=== PATIENT | female | born 1990 | race Caucasian/White ===

== ENCOUNTER 2021-07-28 07:58 | Observation (INO) | payer BC, SELFPAY ==
[2021-07-28 08:31] VITALS: BP 121/77; PULSE 98
[2021-07-28 08:48] VITALS: TEMP 36.4
[2021-07-28] MEDS: THIAMINE HCL INJ 100 MG, FOLIC ACID INJ 1 MG, MULTIVITAMINS-12 INJ VIAL 1 5 ML, MULTIVI... 500 MG IV CONT (08:52)
[2021-07-28] MEDS: ONDANSETRON INJ 4 MG/2 ML VIAL IV PUSH (08:56)
[2021-07-28] MEDS: FAMOTIDINE 20 MG/2 ML VIAL IV PUSH (08:57)
[2021-07-28 09:04] VITALS: BMI 36.3
--- NOTE | 2021-07-28 09:04 | OBADM ---
This patient, Ct Olvera, admitted to the OB room OB Post 116 for observation. Patient/family oriented to hospital policies and general routines including ID bracelet, bed and alarms, visiting hours, pain management, procedures, bathroom and other care routines, personal items, smoking policy, room service/diet, and visiting hours. Patient/Family are encouraged to report perceived risks to care and to ask questions if they do not understand what they are told or what they should do.
[2021-07-28 09:20] LABS: Add Urine Microscopic? YES; Appearance Urine Cloudy (Clear); Bacteria Urine 2+ /hpf; Bilirubin Urine Negative (Negative); Blood Urine Negative (Negative); Color Urine Amber (Yellow); Glucose Urine UA Negative (Negative); Ketones Urine Negative (Negative); Leukocyte Esterase Ur Trace LEU/UL (NEGATIVE); Mucus Urine Rare /lpf; Nitrate Urine Negative (Negative); Protein Urine 1+ mg/dL (Negative); Specific Grav Ur 1.016 (1.001-1.035); Squamous Epithelial Cell Urine Many /hpf (Few)
[2021-07-28] MEDS: DEXTROSE 5%/LACTATED RINGERS 1,000 ML 999 ML IV CONT (11:29)
--- NOTE | 2021-07-28 12:16 | PC.NURSE ---
Patient states that she is feeling better and ok to go home. Dr Clay notified that patient is feeling better. OK to dc home.
--- NOTE | 2021-07-31 13:33 | P.PNOB_ITS ---
OB - Triage/Final Diagnosis Visit Information Comments/Additional reasons for admission: I have assessed the risk for this patient, Ct Olvera, and determined that she would benefit from observation care. Evaluation Laboratory results: Laboratory Tests 07/28/21 08:35 Urine Color Taylor Urine Appearance Cloudy H Urine pH 6.0 Ur Specific [place] 1.016 Urine Protein 1+ H Urine Glucose (UA) Negative Urine Ketones Negative Ur Blood (Man) Negative Urine Nitrate Negative Urine Bilirubin Negative Urine Urobilinogen 2.0 H Ur Leukocyte Esterase Trace H Urine RBC 6-10 H Urine WBC 10-15 H Ur Squamous Epith Cells Many H Urine Bacteria 2+ H Urine Mucus Rare Final Diagnosis (1) Viral gastroenteritis: Code(s): A08.4 - Viral intestinal infection, unspecified Status: Acute
== END 2021-07-28 12:35 | disposition home or self-care (01) ==
PROVIDERS: Admitting Provider Obstetrics & Gynecology; PCP Internal Medicine; Visit Provider Obstetrics & Gynecology
DX: O98.513 Other viral diseases complicating pregnancy, third trimester (principal); A08.4 Viral intestinal infection, unspecified; Z3A.30 30 weeks gestation of pregnancy
CPT/HCPCS: 59025; 81001; 87086; 87088; 96365; 96366; 96375; G0378; G0379; J2405; J3411; J3475; J7121

== ENCOUNTER 2021-09-07 12:42 | Observation (INO) | payer BC, SELFPAY ==
[2021-09-07 14:26] VITALS: BMI 35.6
--- NOTE | 2021-09-07 14:26 | OBADM ---
This patient, Ct Olvera, admitted to the OB room Labor/Delivery/Recovery 104 for observation. Patient/family oriented to hospital policies and general routines including ID bracelet, bed and alarms, visiting hours, pain management, procedures, bathroom and other care routines, personal items, smoking policy, room service/diet, and visiting hours. Patient/Family are encouraged to report perceived risks to care and to ask questions if they do not understand what they are told or what they should do.
--- NOTE | 2021-09-11 13:35 | PM.OBTRLD ---
OB - Triage/Final Diagnosis Visit Information Comments/Additional reasons for admission: I have assessed the risk for this patient, Ct Olvera, and determined that she would benefit from observation care. Final Diagnosis (1) Cramping affecting , antepartum: Code(s): O26.899 - Other specified related conditions, unspecified trimester; R10.9 - Unspecified abdominal pain Status: Acute
== END 2021-09-07 14:25 | disposition home or self-care (01) ==
PROVIDERS: Admitting Provider Obstetrics & Gynecology; PCP Internal Medicine; Visit Provider Obstetrics & Gynecology
DX: O26.899 Other specified pregnancy related conditions, unspecified trimester (principal); R10.9 Unspecified abdominal pain; Z3A.00 Weeks of gestation of pregnancy not specified
CPT/HCPCS: G0378; G0379

== ENCOUNTER 2021-09-22 10:09 | Outpatient (RCR) | payer BC, SELFPAY ==
--- NOTE | ~2021-09-22 | US_ITS ---
EXAMINATION: US OB follow up w [facility] DATE: 09/22/2021 11:57 INDICATION: Bleeding during third trimester TECHNIQUE: Real-time pelvic ultrasound was performed. The interpreting radiologist was not present fo r the study. COMPARISON: None. FINDINGS: There is a single living fetus in vertex presentation. The placenta is anterior. heart rate is 132 beats per minute (bpm). The amniotic fluid index is normal (normal range: 7.3 cm to 23.4 cm). Biophysical profile performed by the technologist: breathing (30 sec sustained breathing in 30 minutes): 0 out of 2 movement (3 gross body movements in 30 minutes): 2 out of 2 tone (one episode of jhpsjub-xdbymkdku-zjywjma limb movement): 2 out of 2 Amniotic fluid pocket (2 cm): 2 out of 2 Total score: 6 out of 8 The following biometric data were obtained: Biparietal diameter (BPD): 9.5 cm; head circumference (HC): 34.3 cm; abdominal circumference (AC): 39 .5 cm; femur length (FL): 7.5 cm. These measurements are concordant. Estimated weight is 4413 g +/- 661 g, which correlates with the >97th percentile when 10/02/2021 is used as estimated date of delivery. As single measurements, these parameters are each equal to the following estimated gestational ages w ith ranges of +/- 2 standard deviations: BPD: 38 weeks 6 days +/- 3 weeks 1 days. HC: 39 weeks 4 days +/- 2 weeks 5 days. AC: OOR FL: 38 weeks 2 days +/- 3 weeks 1 days. estimated gestational age based solely on measurements from this exam is 38 weeks 6 days +/- 2 weeks 5 days. IMPRESSION: 1. Single living fetus in vertex presentation. 2. Biophysical profile 6 out of 8. No points for breathing. 3. Estimated weight is 4413 g +/- 661 g, which correlates with the >97th percentile when 022 is used as estimated date of delivery. Reviewed, dictated and finalized at location A. IMPRESSION: 1. Single living fetus in vertex presentation. 2. Biophysical profile 6 out of 8. No points for breathing. 3. Estimated weight is 4413 g +/- 661 g, which correlates with the >97th percentile when 10/02/2021 is used as estimated date of delivery.
[2021-09-22 12:25] VITALS: BP 129/82; PULSE 91
--- NOTE | 2021-09-23 07:42 | PM.IMHP ---
H&P: HPI History of Present Illness Date/Time: 09/23/21 07:42 Chief Complaint: vaginal bleeding Narrative: Ct is a 31yo @ 38.5 (MASTER 10/02/21) who presented to L&D w/ persistent vaginal bleeding for the last few days; but has increased to bright red bleeding. She reports good movement. No leakage of fluid. She is having regular contractions q3-5min; cervix 3/80/-3. She has been closely monitored for growth; baby has been >97% with the AC measuring larger (out of range yesterday). She has been counseled that the EFW is as high as >5000g which is an indication for primary and she agrees. Her has been complicated by: - COVID infection in - Obesity - Anxiety on zoloft - Anemia on iron - LGA fetus; EFW >97%ile Review of Systems Review of Systems: All systems reviewed & are unremarkable except as noted in HPI and below (HPI) [facility] Past Medical History Medical History (Updated 09/23/21 @ 07:51 by Autumn Clay MD) Anxiety Surgical History Surgical History (System 07/31/21 @ 10:44 by Pola Medellin) History of appendectomy (~01/2020) History of dilation and curettage (~07/2020) missed AB Family History Family History Father Hypertension Diabetes mellitus Hypercholesteremia Mother Hypertension Hypercholesteremia Ulcerative colitis Social History Social History (System 07/31/21 @ 10:44 by Pola Medellin) Substance use: never Spiritual care concerns: No Meds Home Medications and Allergies Home Medications Medication Instructions Recorded Confirmed Type sertraline 50 mg tablet (Zoloft) 50 mg PO DAILY 06/05/21 07/28/21 History vits 75-iron 28 mg-folic 1 pkg PO 07/28/21 History acid 800 mcg-omega3 440 mg oral pack Allergies Allergy/AdvReac Type Severity Reaction Status Date / Time Penicillins Allergy Intermediate Hives Verified 09/03/21 14:33 amoxicillin Allergy Unknown Rash Verified 09/03/21 14:33 Vital Signs Vital Signs - 24 hr 09/22/21 12:25 Pulse Rate 91 Blood Pressure [Right Arm] 129/82 Exam Const: General: cooperative, healthy appearing, comfortable and no acute distress Resp: Effort & Inspection: normal respiratory effort Cardio: Rate: regular rate GI: GI Palp: Yes Soft to palpation : Other: FHT's: 140's/ mod boubacar/ no accels/ occasional lates/variables w/ contractions - cat 2 TOCO: ctx's q5min Presentation: cephalic Cervix: 3/80/-3 Membranes: bulging bag, intact GBS negative Skin: General skin exam: normal color Neuro: General: patient oriented x3 Extrem: General: normal to inspection Psych: Appearance: grossly normal Affect: normal affect Attitude: cooperative Assessment and Plan Assessment and plan (1) Vaginal bleeding: Code(s): N93.9 - Abnormal uterine and vaginal bleeding, unspecified Status: Acute (2) Large for gestational age fetus: Status: Acute Plan - We have discussed in detail the US findings and concern for the abdomen being significantly larger than the head; and risk of shoulder dystocia. He also has an estimated weight of 4-5k (20% either way). She understands that ultrasounds are never 100% accurate. However, with the decelerations and vaginal bleeding; I am unsure if we would even be able to augment labor at this point - Risks and benefits of the have been discussed in detail - Ancef 2g pre-op
--- NOTE | 2021-09-23 07:55 | WPDHPUPDATE1 ---
History and Physical Update Update Date/Time: 09/23/21 07:55 History and Physical has been reviewed, including an updated exam of the patient. There are NO changes in the patient's condition. Risks, benefits, and alternatives have been discussed and questions answered. Patient agrees to proceed with procedure.
== END 2021-09-27 08:47 | disposition home or self-care (01) ==
LOC: ANHOBOP 10:09
PROVIDERS: PCP Internal Medicine; Visit Provider Obstetrics & Gynecology
DX: O99.891 Other specified diseases and conditions complicating pregnancy (principal); N93.9 Abnormal uterine and vaginal bleeding, unspecified; Z3A.38 38 weeks gestation of pregnancy
CPT/HCPCS: 59025; 76816; 76819

== ENCOUNTER 2021-09-23 07:00 | Inpatient (IN) | payer BC, SELFPAY ==
[2021-09-23] VITALS (67 sets, daily range): BP systolic 97–132; BP diastolic 51–93; PULSE 61–101; RESP 12–22; TEMP 36.2–36.5; O2SAT 97–100; BMI 35.6
--- OUTSIDE RECORDS SUMMARY | 2021-09-23 07:35 | XMS_ITS ---
:1990 Author Care Team Providers Name Role Phone KOFI SPAULDING MD Primary Care Provider [phone] Allergies Code Code System Name Reaction Severity Status Onset Penicillins Hives ? Active ? Notes: Some allergies listed in Docume nt: #[id number] could not be added to this patient's chart. Please review this docu ment and add these allergies to the patient's chart manually as needed. Medications Name Status Start Date Stop Date ? ? amoxicillin 875 mg-potassium clavulanate 125 mg tablet Completed ? 07/12/2020 TAKE 1 TABLET BY MOUTH TWICE A DAY FOR 7 DAYS azithromycin 250 mg tablet Completed ? 07/12 TAKE 2 TABLETS BY MOUTH TODAY, THEN TAKE 1 TABLET DAILY FOR 4 D AYS benzonatate 200 mg capsule Completed ? 09/26 cefuroxime axetil 250 mg tablet Completed ? 07/12/2020 TAKE 1 TABLET BY MOUTH TWICE A DAY cephalexin 500 mg capsule Completed ? 2019 docusate sodium 100 mg capsule Completed ? 0 07/12/2020 TAKE 1 CAPSULE BY MOUTH TWICE A DAY Martine 0.35 mg tablet Completed ? 06/28/2019 Take 1 tablet every day by oral route. fluconazole 150 mg tablet Completed ? 2020 TAKE 1 TABLET BY MOUTH NOW, REPEAT IN 7 DAYS IF SYMPTOMS PERSIS T fluoxetine 10 mg capsule Completed ? 018 fluoxetine 20 mg capsule Active ? Not jose ilable fluticasone propionate 50 mcg/actuation nasal Active ? Not available spray,suspension hydrocodone 5 mg-acetaminophen 325 mg tablet Completed ? 07/12/2020 TAKE 1 TABLET BY MOUTH EVERY 6 HOURS NEEDED FOR PAIN Kariva (28) 0.15 mg-0.02 mg (21)/0.01 mg (5) tablet Completed ? 07/12/2020 Larissia 0.1 mg-20 mcg tablet Complete
--- OUTSIDE RECORDS SUMMARY | 2021-09-23 07:36 | XMS_ITS ---
:1990 Author Care Team Providers Name Role Phone KOFI SPAULDING MD Primary Care Provider [phone] Allergies Code Code System Name Reaction Severity Status Onset Penicillins Hives ? Active ? Notes: Some allergies listed in Docume nt: #[id number] could not be added to this patient's chart. Please review this docu ment and add these allergies to the patient's chart manually as needed. Medications Name Status Start Date Stop Date ? ? azithromycin 250 mg tablet Completed ? 09/26 benzonatate 200 mg capsule Completed ? 09/26 cephalexin 500 mg capsule Completed ? 2019 Martine 0.35 mg tablet Completed ? 06/28/2019 Take 1 tablet every day by oral route. fluoxetine 10 mg capsule Completed ? 018 fluoxetine 20 mg capsule Active ? Not jose ilable TAKE 1 CAPSULE BY MOUTH DAILY fluticasone propionate 50 mcg/actuation nasal Active ? Not available spray,suspension [place]iss[place] 0.1 mg-20 mcg tablet Active ? No t available Mircette (28) 0.15 mg-0.02 mg (21)/0.01 mg (5) tablet Active ? Not available Take 1 tablet every day by oral route. nitrofurantoin monohydrate/macrocrystals 100 mg capsule Complete d ? 06/16/2018 TAKE 1 CAPSULE BY MOUTH EVERY 12 HOURS FOR 5 DAYS phenazopyridine 200 mg tablet Completed ? Take 1 tablet 3 times a day by oral route after meals for 2 day s. Notes: PNV Problems Name Status Onset Date Source ? Unknown 11/18/2017 ? Procedures Date Name Performed by ? 10/21/2017 US, Obstetric, 1St Trimester [facility] (One Call Scheduling)
--- NOTE | 2021-09-23 07:42 | HP_ITS ---
This report was moved to the correct visit on 09/27/2021. Original report was signed by Autumn Clay MD 09/23/21 0755. H&P: HPI History of Present Illness Date/Time: 09/23/21 07:42 Chief Complaint: vaginal bleeding Narrative: Ct is a 31yo @ 38.5 (MASTER 10/02/21) who presented to L&D w/ persistent vaginal bleeding for the last few days; but has increased to bright red bleeding. She reports good movement. No leakage of fluid. She is having regular contractions q3-5min; cervix 3/80/-3. She has been closely monitored for growth; baby has been >97% with the AC measuring larger (out of range yesterday). She has been counseled that the EFW is as high as >5000g which is an indication for primary and she agrees. Her has been complicated by: - COVID infection in - Obesity - Anxiety on zoloft - Anemia on iron - LGA fetus; EFW >97%ile Review of Systems Review of Systems: All systems reviewed & are unremarkable except as noted in HPI and below (HPI) [facility], [facility] Past Medical History Medical History (Updated 09/23/21 @ 07:51 by Autumn Clay MD) Anxiety Surgical History Surgical History (System 07/31/21 @ 10:44 by Pola Medellin) History of appendectomy (~01/2020) History of dilation and curettage (~07/2020) missed AB Family History Family History Father Hypertension Diabetes mellitus Hypercholesteremia Mother Hypertension Hypercholesteremia Ulcerative colitis Social History Social History (System 07/31/21 @ 10:44 by Pola Medellin) Substance use: never Spiritual care concerns: No Meds Home Medications and Allergies Home Medications Medication Instructions Recorded Confirmed Type sertraline 50 mg tablet (Zoloft) 50 mg PO DAILY 06/05/21 07/28/21 History vits 75-iron 28 mg-folic 1 pkg PO 07/28/21 History acid 800 mcg-omega3 440 mg oral pack Allergies Allergy/AdvReac Type Severity Reaction Status Date / Time Penicillins Allergy Intermediate Hives Verified 09/03/21 14:33 amoxicillin Allergy Unknown Rash Verified 09/03/21 14:33 Vital Signs Vital Signs - 24 hr 09/22/21 12:25 Pulse Rate 91 Blood Pressure [Right Arm] 129/82 Exam Const: General: cooperative, healthy appearing, comfortable and no acute distress Resp: Effort & Inspection: normal respiratory effort Cardio: Rate: regular rate GI: GI Palp: Yes Soft to palpation : Other: FHT's: 140's/ mod boubacar/ no accels/ occasional lates/variables w/ contractions - cat 2 TOCO: ctx's q5min Presentation: cephalic Cervix: 3/80/-3 Membranes: bulging bag, intact GBS negative Skin: General skin exam: normal color Neuro: General: patient oriented x3 Extrem: General: normal to inspection Psych: Appearance: grossly normal Affect: normal affect Attitude: cooperative Assessment and Plan Assessment and plan (1) Vaginal bleeding: Code(s): N93.9 - Abnormal uterine and vaginal bleeding, unspecified Status: Acute (2) Large for gestational age fetus: Status: Acute Plan - We have discussed in detail the US findings and concern for the abdomen being significantly larger than the head; and risk of shoulder dystocia. He also has an estimated weight of 4-5k (20% either way). She understands that ultrasounds are never 100% accurate. However, with the decelerations and vaginal bleeding; I am un
--- NOTE | 2021-09-23 07:55 | HP_ITS ---
This report was moved to the correct visit on 09/27/2021. Original report was signed by Autumn Clay MD 09/23/21 0755. History and Physical Update Update Date/Time: 09/23/21 07:55 History and Physical has been reviewed, including an updated exam of the patient. There are NO changes in the patient's condition. Risks, benefits, and alternatives have been discussed and questions answered. Patient agrees to proceed with procedure. This dictation may have been done utilizing a voice recognition system. Attempts have been made to correct errors. However, there may be uncorrected grammatical, spelling, and recognition errors present. Report Initialized date/time: Autumn Clay MD 09/23/21 0755 Electronically signed by: Autumn Clay MD 09/23/21 0755 [facility]
[2021-09-23 08:04] LABS: Basophils Percent Auto 0.3 % (0.2-1.2); Eosinophils Percent Auto 0.4 % (0-4.4); Hematocrit 36.9 % (37.0-47.0); Hemoglobin 11.9 g/dL (12.0-15.0); Immature Granulocyte Absolute 0.08 K/mm3 (0.00-0.031); Immature Granulocyte Percent A 0.8 % (0-0.5); Lymphocytes Absolute Auto 1.35 K/mm3 (0.9-3.2); Lymphocytes Percent Auto 13.3 % (18.3-44.2); Mean Corpuscular HGB Conc 32.2 g/dl (32-36); Mean Corpuscular Hemoglobin 27.8 pg (26-34); Mean Corpuscular Volume 86.2 fl (80-100); Mean Platelet Volume 11.7 fl (7.4-10.4); Monocytes Absolute Auto 0.5 K/mm3 (0.1-0.6); Monocytes Percent Auto 5.2 % (2.6-8.5); Neutrophils Absolute Auto 8.1 K/mm3 (1.3-6.7); Platelet Count Result 160 k/mm3 (150-375); Red Blood Count 4.28 M/mm3 (4.2-5.4); Red Cell Distribution Width 18.6 % (11.5-14.5); White Blood Count 10.2 K/mm3 (4.5-10.0)
[2021-09-23] MEDS: LACTATED RINGERS 1,000 ML 999 ML (08:09)
[2021-09-23] MEDS: ceFAZolin 2 GM/D5W 50 ML 2 GM/50 ML BAG IVPB (08:28)
--- NOTE | 2021-09-23 08:39 | WPDANESEPPF ---
Anes - Initial Pre Proc Eval Procedure: Operation Date: 09/23/21 08:00 Proposed Procedures p Section - Autumn Clay MD Date/Time: 09/23/21 08:39 Surgeon: Autumn Clay MD Pre Op Diagnosis: Labor Patient Data Age: 31 Gender: F Height: 1.68 m Weight: 100.3 kg Last Vital Signs Pulse 98 09/23/21 08:15 BP 124/84 09/23/21 08:15 O2 Del Method Room Air 09/23/21 07:43 Allergies Allergy/AdvReac Type Severity Reaction Status Date / Time Penicillins Allergy Intermediate Hives Verified 09/03/21 14:33 amoxicillin Allergy Unknown Rash Verified 09/03/21 14:33 Home Medications Medication Instructions Recorded Confirmed Type sertraline 50 mg tablet (Zoloft) 50 mg PO DAILY 06/05/21 07/28/21 History vits 75-iron 28 mg-folic 1 pkg PO 07/28/21 History acid 800 mcg-omega3 440 mg oral pack Laboratory Tests 09/23/21 09/23/21 07:55 07:55 WBC 10.2 K/mm3 H K/mm3 (4.5-10.0) RBC 4.28 M/mm3 M/mm3 (4.2-5.4) Hgb 11.9 g/dL L g/dL (12.0-15.0) Hct 36.9 % L % (37.0-47.0) MCV 86.2 fl fl (80-100) MCH 27.8 pg pg (26-34) MCHC 32.2 g/dl g/dl (32-36) RDW 18.6 % H % (11.5-14.5) Plt Count 160 k/mm3 k/mm3 (150-375) MPV 11.7 fl H fl (7.4-10.4) Immature Gran % (Auto) 0.8 % H % (0-0.5) Neut % (Auto) 80.0 % H % (45.5-73.1) Lymph % (Auto) 13.3 % L % (18.3-44.2) [place] % (Auto) 5.2 % % (2.6-8.5) Eos % (Auto) 0.4 % % (0-4.4) Baso % (Auto) 0.3 % % (0.2-1.2) Lymph # (Auto) 1.35 K/mm3 K/mm3 (0.9-3.2) [place] # (Auto) 0.5 K/mm3 K/mm3 (0.1-0.6) Eos # (Auto) 0.0 K/mm3 K/mm3 (0-0.3) Baso # (Auto) 0.0 K/mm3 K/mm3 (0.0-0.1) Abs Immat Gran (auto) 0.08 K/mm3 H K/mm3 (0.00-0.031) Absolute Neuts (auto) 8.1 K/mm3 H K/mm3 (1.3-6.7) Absolute Nucleated RBC 0.0 K/mm3 K/mm3 (0.0-0.012) Nucleated RBC % 0.0 % % (0.0-0.2) RPR Pending Patient hx anesthesia problems: none Family hx anesthesia problems: none Results Review: All pre-operative results and documents have been reviewed as part of the pre-operative evaluation. [facility] Past Medical History Medical History Anxiety Surgical History Surgical History History of appendectomy (~01/2020) History of dilation and curettage (~07/2020) missed AB Family History Family History Father Hypertension Diabetes mellitus Hypercholesteremia Mother Hypertension Hypercholesteremia Ulcerative colitis Social History Social History Smoking status: Never smoker Substance use: never Spiritual care concerns: No Anes - Eval Final PreProcedure Day of Procedure 09/23/21 08:39 Patient weight: obese Heart: regular rate and rhythm Lungs: clear to auscultation Airway: Mallampati scale class II Neurological: alert and oriented Last oral intake: >/= 8 hours ASA classification: II Emergent: no Anesthetic plan: proceed Anesthesia type and monitoring: regional spinal and standard monitoring Results Review: All pre-operative results and documents have been reviewed as part of the pre-operative evaluation. Informed Consent: The patient's anesthetic plan and its attendant risks and benefits were discussed with the patient/family/POA. Questions were solicited and answers provided to the satisfaction of the patient/family/POA.
--- NOTE | 2021-09-23 09:47 | PM.OBPRVD ---
OB - Delivery Note Procedure Delivery date: 09/23/21 Procedure: Procedures Operation Date: 09/23/21 08:00 <No data on this case meets the specified criteria> Events: Macrosomia and Other (decelerations and vaginal bleeding) Route of delivery: Prior to decision for section, ACOG/SMFM labor guidelines were considered and discussed with the patient and staff. Decision made to proceed with the section.: Yes Delivery repair: vicryl Specimen: Yes (placenta) Quantitative Blood Loss (ml): 845 Anesthesia type: Spinal Disposition: Floor [place] Baby Date of : 09/23/21 Time of : 09:01 Weeks of gestation at delivery: 38 (.5) gender: Male Weight (pounds): 10 Weight (ounces): 0 presentation: vertex position: Left Occiput Transverse Placenta delivery description: Expressed Cord Vessel Description: 3 Vessels and Clamped/Cut score one minute: 8 score five minutes: 9 Narrative: She was counseled on all risks and benefits in detail. She was taken to the operating room where spinal was placed. She was then prepped and draped in the normal sterile fashion. She received 2g Ancef and a time out was performed. A Pfannenstiel incision was made in the skin and carried down to the underlying fascia. The fascia was nicked on either side of the midline and the fascial incision was extended laterally and superiorly. The fascia was then elevated and the underlying rectus muscles were dissected off the fascia, superiorly and inferiorly. The rectus muscles were then in the midline and the peritoneum was entered bluntly. Once adequate exposure was obtained, a Mobius self retractor was placed within the abdomen. A bladder flap was created. A low transverse incision was made on the lower uterine segment and clear fluid was noted. The occiput was brought to the hysterotomy and the head was easily delivered. The shoulder and body then followed without complications. The had spontaneous cry and the mouth and nose were bulb suctioned. The cord was clamped and cut and the infant was handed off to the awaiting pediatric nurse. A segment of the cord was collected for cord gases. The remaining cord blood was collected for typing. With pitocin infusing, the placenta delivered with gentle traction on the cord without complications. The uterus was then cleared out of all clots and debris using a clean, moist lap. The hysterotomy was then repaired in a running fashion using 0 Vicryl. A second layer imbricating suture was then made using 0 Vicryl. An additional figure of eight using 0 Vicryl was placed on the left side of the hysterotomy. The hysterotomy was then found to be hemostatic and good uterine tone was noted. The bilateral adnexa were examined and found to be normal. The pelvis was cleared of all clots and fluid. The Mobius retractor was removed from the abdomen. The peritoneum, muscle, and fascia were examined and made hemostatic with bovie cautery. The fascia was then repaired using two separate 0 Vicryl suture in a running fashion. The subcutaneous tissue was then irrigated and made hemostatic with bovie cautery. The subcutaneous tissue was then reapproximated using 2-0 Vicryl. The skin was then closed using 4-0 Monocryl in a running subcuticular fashion. Sponge, lap, needle and instrument counts were correct at the end of the procedure x2. The patient tolerated the procedure well and was taken to recovery in a stable condition. [facility] Delivery Billing Delivery Delivery: Delivery Charge
[2021-09-23] MEDS: OXYTOCIN 30 UNITS/NS 500 ML 30 UNITS/500 ML BAG 125 UNITS IV CONT (10:21)
[2021-09-23] MEDS: KETOROLAC 30 MG/ML VIAL (*BKC) IV PUSH ×2 (12:15→18:54)
[2021-09-23] MEDS: DEXTROSE 5%/0.45% SOD CHL 1,000 ML 125 ML IV CONT (14:45)
--- NOTE | 2021-09-23 15:07 | OBPPTRN ---
1157-Patient transferred to post room #285 via stretcher. Support person present. Oriented to unit, room, information board, rooming in, admission packet and security measures. Patient verbalizes understanding.
[2021-09-23] MEDS: SERTRALINE HCL 50 MG TABLET PO (16:55)
[2021-09-24] MEDS: IBUPROFEN 600 MG TABLET PO ×4 (02:19→21:00)
[2021-09-24] MEDS: HYDROcodone/acetaminophen (*CRX) 5-325 MG TABLET 1 TAB PO ×4 (02:19→21:00)
[2021-09-24 04:07] VITALS: BP 123/66; PULSE 71; RESP 16; TEMP 36.1; O2SAT 97
[2021-09-24 04:24] LABS: Basophils Percent Auto 0.3 % (0.2-1.2); Eosinophils Percent Auto 0.4 % (0-4.4); Hematocrit 32.9 % (37.0-47.0); Hemoglobin 10.4 g/dL (12.0-15.0); Immature Granulocyte Absolute 0.04 K/mm3 (0.00-0.031); Immature Granulocyte Percent A 0.4 % (0-0.5); Lymphocytes Absolute Auto 0.95 K/mm3 (0.9-3.2); Lymphocytes Percent Auto 10.1 % (18.3-44.2); Mean Corpuscular HGB Conc 31.6 g/dl (32-36); Mean Corpuscular Hemoglobin 27.7 pg (26-34); Mean Corpuscular Volume 87.5 fl (80-100); Mean Platelet Volume 11.4 fl (7.4-10.4); Monocytes Absolute Auto 0.5 K/mm3 (0.1-0.6); Monocytes Percent Auto 5.1 % (2.6-8.5); Neutrophils Absolute Auto 7.9 K/mm3 (1.3-6.7); Neutrophils Percent Auto 83.7 % (45.5-73.1); Platelet Count Result 127 k/mm3 (150-375); Red Blood Count 3.76 M/mm3 (4.2-5.4); Red Cell Distribution Width 18.6 % (11.5-14.5); White Blood Count 9.4 K/mm3 (4.5-10.0)
[2021-09-24] MEDS: SERTRALINE HCL 50 MG TABLET PO (07:03)
[2021-09-24] MEDS: SIMETHICONE 80 MG TAB.CHEW PO ×6 (07:03→23:30)
[2021-09-24] MEDS: DIBUCAINE 1% OINTMENT 30 GM TUBE 1 APPLIC TOPICAL (07:03)
[2021-09-24] MEDS: MULTIVIT/MIN/PREN/FOL AC/IRON TABLET 1 TAB PO (07:03)
[2021-09-24] MEDS: DOCUSATE SODIUM 100 MG CAPSULE PO ×2 (07:03→18:48)
[2021-09-24 07:20] VITALS: BP 112/63; PULSE 75; RESP 18; TEMP 36.8; O2SAT 99
[2021-09-24 07:30] VITALS: PULSE 75; RESP 18; O2SAT 99
--- NOTE | 2021-09-24 07:38 | PM.OBPNVD ---
OB - PN: Subj Subjective Date/time seen: 09/24/21 07:06 Narrative: POD#1 Ct reports doing well today. 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 Her pain is controlled, but slightly stronger than yesterday. She is tolerating regular diet, has passed gas. The catheter is still in place. She sat up in the chair yesterday. She denies any issues with her incision. She is breast feeding. She would like her son circumcised. OB - PN: Obj Data Labs CBC & Chem 7: 09/24/21 04:13 Labs: Laboratory Results - last 24 hr 09/23/21 09/23/21 09/24/21 07:55 07:55 04:13 WBC 10.2 H 9.4 RBC 4.28 3.76 L Hgb 11.9 L 10.4 L Hct 36.9 L 32.9 L MCV 86.2 87.5 MCH 27.8 27.7 MCHC 32.2 31.6 L RDW 18.6 H 18.6 H Plt Count 160 127 L MPV 11.7 H 11.4 H Immature Gran % (Auto) 0.8 H 0.4 Neut % (Auto) 80.0 H 83.7 H Lymph % (Auto) 13.3 L 10.1 L George % (Auto) 5.2 5.1 Eos % (Auto) 0.4 0.4 Baso % (Auto) 0.3 0.3 Lymph # (Auto) 1.35 0.95 George # (Auto) 0.5 0.5 Eos # (Auto) 0.0 0.0 Baso # (Auto) 0.0 0.0 Abs Immat Gran (auto) 0.08 H 0.04 H Absolute Neuts (auto) 8.1 H 7.9 H Absolute Nucleated RBC 0.0 0.0 Nucleated RBC % 0.0 0.0 Blood Type O Positive Antibody Screen Negative OB - PN A/P Assessment and Plan (1) S/P section: Code(s): Z98.891 - History of uterine scar from previous surgery Status: Acute Plan day: 1 Plan: routine care Comments: - remove grace; pain control; ambulate; stay hydrated; continue breast feeding Time Spent With Patient Time: Total time spent is greater than 50% in coordination of care (as documented) at patient's floor/unit and/or counseling patient: Review of Systems Constitutional: Constitutional: Denies chills, Denies fever(s) and Denies headache(s) Eyes: Eyes: Denies change in vision ENT: Denies dizziness and Denies headache(s) Cardiovascular: Cardiovascular: Denies chest pain, Denies palpitations and Denies dyspnea Respiratory: Respiratory: Denies cough and Denies dyspnea Gastrointestinal: Gastrointestinal: Denies nausea and Denies vomiting Genitourinary: Comments: normal bleeding Neurologic: Denies dizziness and Denies headache(s) Endocrine: Endocrine: Denies palpitations Exam Const: General: cooperative, comfortable and no acute distress Orientation/consciousness: patient oriented x3 Resp: Effort & Inspection: normal respiratory effort Auscultation: clear to auscultation bilaterally Cardio: Rate: regular rate GI: Inspection: non-distended and incision (covered with clean dressing) GI Palp: Yes abdominal tenderness (appropriate) and Yes Soft to palpation Auscultation: normal bowel sounds : Other: fundus firm Skin: General skin exam: normal color Neuro: General: patient oriented x3 Extrem: General: normal to inspection Psych: Appearance: grossly normal Affect: normal affect Attitude: cooperative
[2021-09-24 10:35] LABS: Rapid Plasma Reagin Non-Reactive (NonReactive)
[2021-09-24] MEDS: HYDROcodone/acetaminophen (*CRX) 10-325 MG TABLET 1 TAB PO ×3 (11:31→23:32)
--- NOTE | 2021-09-24 13:39 | WPDANLDNPN2 ---
Anes-Prog Note L&D-Neuraxial Date/Time: 09/24/21 13:39 Neuraxial medications: intrathecal PF morphine Opiod-related complaints: none Patient feedback: Patient satisfied with post-operative pain management.
--- NOTE | 2021-09-24 13:40 | WPDANLDPN2 ---
Anes-Prog Note L&D Date/Time: 09/24/21 13:40 Comfortable throughout: section Neuraxial method: spinal Epidural/Spinal procedure site: clean & non-tender Neuro status: Neuro function grossly intact. Cardiovascular status: normal Respiratory status: normal Airway patency: baseline Mental status: baseline Post-Op hydration status: normal Vital Signs: Last Vital Signs Temp 98.2 F 09/24/21 07:20 Pulse 75 09/24/21 07:30 Resp 18 09/24/21 07:30 BP 112/63 09/24/21 07:20 Pulse Ox 99 09/24/21 07:30 O2 Del Method Room Air 09/24/21 07:30 Pain score (VAS): 0 I/O: Intake & Output 09/23/21 09/24/21 09/24/21 23:59 07:59 15:59 Intake Total 1342 1400 500 Output Total 450 2150 822 Balance 282 -139 -206 Patient feedback: Patient satisfied with anesthetic care.
[2021-09-24 18:45] VITALS: BP 108/72; PULSE 76; RESP 18; TEMP 36.6
[2021-09-25] MEDS: HYDROcodone/acetaminophen (*CRX) 5-325 MG TABLET 1 TAB PO ×3 (03:30→16:34)
[2021-09-25] MEDS: IBUPROFEN 600 MG TABLET PO ×4 (03:37→22:42)
[2021-09-25] MEDS: SIMETHICONE 80 MG TAB.CHEW PO ×5 (07:19→22:37)
[2021-09-25] MEDS: HYDROcodone/acetaminophen (*CRX) 10-325 MG TABLET 1 TAB PO ×3 (07:19→22:44)
--- NOTE | 2021-09-25 07:36 | PM.OBPNVD ---
OB - PN: Subj Subjective Date/time seen: 09/25/21 07:36 Narrative: POD#2 Ct reports doing ok today. 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 She is tolerating regular diet, voiding, passing gas, and ambulating without issues. She denies any issues with her incision. She is breast feeding. OB - PN: Obj Data Labs CBC & Chem 7: 09/24/21 04:13 Labs: Laboratory Results - last 24 hr 09/23/21 07:55 RPR Non-reactive OB - PN A/P Plan day: 2 Plan: routine care and discharge home (tomorrow) Comments: - ambulation encouraged; continue pain meds; stay hydrated; continue breast feeding - F/u 2wks for incision check - Pelvic rest; take meds as prescribed - Incision care/no heavy lifting - ER return precautions: fever, n/v/abd pain, bleeding, HTN Time Spent With Patient Time: Total time spent is greater than 50% in coordination of care (as documented) at patient's floor/unit and/or counseling patient: Review of Systems Constitutional: Constitutional: Denies chills, Denies fever(s) and Denies headache(s) Eyes: Eyes: Denies change in vision ENT: Denies dizziness and Denies headache(s) Cardiovascular: Cardiovascular: Denies chest pain, Denies palpitations and Denies dyspnea Respiratory: Respiratory: Denies cough and Denies dyspnea Gastrointestinal: Gastrointestinal: Denies nausea and Denies vomiting Genitourinary: Comments: normal bleeding Neurologic: Denies dizziness and Denies headache(s) Endocrine: Endocrine: Denies palpitations Exam Const: General: cooperative, comfortable and no acute distress Orientation/consciousness: patient oriented x3 Resp: Effort & Inspection: normal respiratory effort Auscultation: clear to auscultation bilaterally Cardio: Rate: regular rate GI: Inspection: non-distended and incision (covered with clean dressing) GI Palp: Yes abdominal tenderness (appropriate) and Yes Soft to palpation Auscultation: normal bowel sounds : Other: fundus firm Skin: General skin exam: normal color Neuro: General: patient oriented x3 Extrem: General: normal to inspection Psych: Appearance: grossly normal Affect: normal affect Attitude: cooperative
[2021-09-25 09:25] VITALS: BP 115/74; PULSE 78; RESP 16; TEMP 36.9; O2SAT 97
[2021-09-25] MEDS: SERTRALINE HCL 50 MG TABLET PO (09:27)
[2021-09-25] MEDS: DOCUSATE SODIUM 100 MG CAPSULE PO ×2 (09:27→16:34)
[2021-09-25] MEDS: MULTIVIT/MIN/PREN/FOL AC/IRON TABLET 1 TAB PO (09:27)
[2021-09-25 18:45] VITALS: BP 117/79; PULSE 64; RESP 18; TEMP 36.8
[2021-09-26] MEDS: IBUPROFEN 600 MG TABLET PO ×2 (05:00→10:36)
[2021-09-26] MEDS: HYDROcodone/acetaminophen (*CRX) 5-325 MG TABLET 1 TAB PO (05:00)
[2021-09-26] MEDS: SIMETHICONE 80 MG TAB.CHEW PO ×2 (05:00→10:37)
--- NOTE | 2021-09-26 06:45 | PC.NURSE ---
PT introductions made and plan of care discussed per post , c section, pain management, breast feeding, daily care activities and pending discharge to home. PT and spouse both recipients of such instructions this shift. No barriers to learning identified at this time. PT received such instructions per one to one discussion, mom baby care guide and demonstrations this shift. PT verbalized understanding of such care.
[2021-09-26 08:10] VITALS: BP 128/87; PULSE 70; RESP 16; TEMP 36.6; O2SAT 99
[2021-09-26 10:30] VITALS: BP 128/87; PULSE 70; RESP 16; TEMP 36.6; O2SAT 99
[2021-09-26] MEDS: MULTIVIT/MIN/PREN/FOL AC/IRON TABLET 1 TAB PO (10:36)
[2021-09-26] MEDS: HYDROcodone/acetaminophen (*CRX) 10-325 MG TABLET 1 TAB PO (10:37)
[2021-09-26] MEDS: DOCUSATE SODIUM 100 MG CAPSULE PO (10:37)
[2021-09-26] MEDS: SERTRALINE HCL 50 MG TABLET PO (10:37)
--- NOTE | 2021-09-26 12:45 | PC.NURSE ---
PT received discharge instructions per protocol and verbalized understanding of such care.
--- NOTE | 2021-09-26 13:26 | PC.NURSE ---
PT discharged to home ambulatory accompanied by spouse and and taken to waiting car. Follow up appointments confirmed
--- NOTE | 2021-09-27 09:06 | PM.OBDSVD ---
DS: Admitting Diagnosis Discharge Date 09/26/21 Admitting Diagnosis Vaginal bleeding heart decelerations Large for gestational age fetus DS: Discharge Diagnosis Discharge Diagnosis (1) Large for gestational age fetus: Status: Acute (2) S/P section: Code(s): Z98.891 - History of uterine scar from previous surgery Status: Acute OB - DS: Summary OB Procedures : Ultrasound OB Procedures Intrapartum: low cervical, transverse OB Procedures: : None Peripartum Data Delivery Method: Section Procedures: Procedures Operation Date: 09/23/21 08:00 Actual Procedure Side Surgeon p Section Autumn Clay MD complications: none 1: Gender: Male Disposition of : home Status at Discharge Functional status at discharge: independent ambulation Overall status at discharge: patient is back to baseline Time Spent with Patient Time attestation: Total time spent providing and/or coordinating discharge services: Time spent: Less than 30 minutes Exam Const: General: cooperative, comfortable and no acute distress Orientation/consciousness: patient oriented x3 Resp: Effort & Inspection: normal respiratory effort Auscultation: clear to auscultation bilaterally Cardio: Rate: regular rate GI: Inspection: non-distended and incision (covered with clean dressing) GI Palp: No abdominal tenderness and Yes Soft to palpation Auscultation: normal bowel sounds : Other: fundus firm Skin: General skin exam: normal color Neuro: General: patient oriented x3 Extrem: General: normal to inspection Psych: Appearance: grossly normal Affect: normal affect Attitude: cooperative DS: Data Data Completed and Pending Pending studies at discharge: Pending at discharge 09/23/21 09:03 Surgical [PTH] Routine Discharge Plan Discharge Attending physician on discharge: Autumn Clay Discharging Clinician: Autumn Clay Anticipated Discharge Date/Time: 09/26/21 10:00 Patient Disposition: Home, Self-Care Activity: may shower and pelvic rest Diet: regular Discharge Instructions: Education: Mom and Baby Guide Given to: Mother Follow-Up: Call your delivering provider's office for an appointment to be seen in: 1 Week Mom and baby should come to the [facility] for the follow-up appointment. Appointment Date/Time: September 27, 2021 at 9:00 am What to expect at your follow-up visit: Blood Pressure Check Call [phone] if you are unable to keep your appointment time. BREAST CARE: * Wear a snug supportive bra. * For engorgement discomfort: Breast Feeding: * Apply warm moist washcloths * Express milk as needed to relieve engorgement * Wear loose clothing Bottle Feeding: * May apply ice packs * For sore nipples: * Identify correct latch-on * Apply warm moist washcloths before and after nursing * Air dry nipples after nursing * May apply Lansinoh cream to nipples ABDOMINAL INCISION: (if applicable) * Allow incision to air dry * Do NOT use lotions for powders on your incision * When showering, allow soap and water to run over the incision, but do not wash incision PERINEAL CARE: * Until bleeding stops, use your jennie bottle after urinating * Change your pad frequently throughout the day * You may take sitz baths several times a day (fill your bathtub with warm water and soak for 20 minutes.) Do NOT bathe in the water * No tub baths until seen by your physician - You may shower ACTIVITY: * Rest as much as possible. * Do not exercise or lift anything heavier than your baby (such as laundry or other children.) * Avoid stairs or driving as much as possible. * Do not put anything into the vagina. No douching, tampons, or sexual activity until seen by physician.
[2021-09-27 09:16] VITALS: BP 131/87; PULSE 66; RESP 20; TEMP 37.1; O2SAT 100
== END 2021-09-26 13:26 | disposition home or self-care (01) | DRG 788 ==
LOC: ANHLDR 07:34 → ANHOB2 11:57
PROVIDERS: Admitting Provider Obstetrics & Gynecology; PCP Internal Medicine; Visit Provider Obstetrics & Gynecology
PROC: 10D00Z1 Extraction of Products of Conception, Low, Open Approach (ICD-10-PCS; CPT 59514; principal; 2021-09-23 08:00)
DX: O36.63X0 Maternal care for excessive fetal growth, third trimester, not applicable or unspecified (principal); Z86.16 Personal history of COVID-19; O99.214 Obesity complicating childbirth; O99.344 Other mental disorders complicating childbirth; F41.9 Anxiety disorder, unspecified; O99.02 Anemia complicating childbirth; O76 Abnormality in fetal heart rate and rhythm complicating labor and delivery; Z3A.38 38 weeks gestation of pregnancy; Z37.0 Single live birth
CPT/HCPCS: 36415; 85025; 86592; 86850; 86900; 86901; 88307; A9270; J0131; J0690; J1885; J2274; J2370; J2405; J2590; J7120

== ENCOUNTER 2021-10-19 13:01 | Outpatient (CLI) | payer BC, SELFPAY | END 2021-10-19 13:02 | disposition home or self-care (01) | LOC: ANHLAB 13:03 | PROVIDERS: PCP Internal Medicine; Visit Provider Obstetrics & Gynecology | DX: N39.0 Urinary tract infection, site not specified (principal) | CPT/HCPCS: 87086 ==